=== PATIENT | male | born 1985 | race Caucasian/White ===

== ENCOUNTER 2025-04-22 09:07 | Emergency (ER) | payer MEDICARE, BC, SELFPAY ==
[2025-04-22 09:12] VITALS: BP 154/106
[2025-04-22 09:29] VITALS: BMI 39.6
[2025-04-22 09:36] VITALS: BP 138/89
--- NOTE | 2025-04-22 14:19 | ED.GENMED ---
History of Present Illness
General
Chief Complaint: Cancer Problem
Source: patient and spouse
Time Seen by Provider: 04/22/25 09:39
History of Present Illness
History of Present Illness:
Note:
CHIEF COMPLAINT(S)
Abdominal pain and constipation.
HISTORY OF PRESENT ILLNESS
The patient is a 40-year-old male with a history of lung cancer and nephrectomy following a kidney cancer diagnosis seven years ago, presenting with constipation, abdominal pain, and rectal pain. The symptoms reportedly worsened today, and he
describes experiencing a significant amount of pain and blood during bowel movements. The patient is on systemic chemotherapy and has taken a break from the medication this week. He attributes the constipation to pain medications. The pain is
located centrally in the abdomen and rectum, with accompanying sensations of bladder pressure. The patient indicates consistent supplemental oxygen use at home, typically needed due to his respiratory condition.
SOCIAL DETERMINANTS AFFECTING HEALTH
The patient is currently receiving care at the [facility] and has an upcoming appointment on Tuesday. He lives with cancer, and his current symptoms are affected by his chemotherapy and medication regimen.
MEDICATIONS
The patient is on a systemic chemotherapy regimen. Mentioned considering Miralax (polyethylene glycol 3350) for bowel management.
REVIEW OF SYSTEMS
- Gastrointestinal: Constipation, abdominal pain, rectal pain, recent rectal bleeding during bowel movements.
- Genitourinary: Sensation of bladder pressure.
PHYSICAL EXAM
- General: Awake, alert, and oriented. no resp distress
- Neurological: No focal motor deficits; cranial nerves grossly intact.
- Abdominal: Mild diffuse tenderness without significant peritoneal signs.
- Extremities: Warm and well-perfused.
PLAN
Obtain an abdominal X-ray to assess the extent of fecal retention and determine if an enema is required. Consider initiating daily use of a stool softener or Miralax for bowel management and discuss hydration strategies. Monitor the patients
symptoms and reassess following imaging to adjust the regimen accordingly.
DIFFERENTIAL DIAGNOSIS
The Differential Diagnosis includes, in no particular order and is not limited to:
- Constipation due to opioid use
- Bowel obstruction
- Gastrointestinal bleeding
- Hemorrhoids
- Diverticulitis
- Rectal fissure
- Anal abscess
- Colorectal cancer
- UTI (urinary tract infection)
- Recurrent malignancy-related complications
Disposition:
SUMMARY OF ENCOUNTER
The patient was seen in the emergency department for worsening constipation, abdominal pain, and rectal pain, exacerbated by opioid use associated with his pain management for cancer. An enema was administered, resulting in a significant bowel
movement and alleviation of symptoms.
REASSESSMENT
Patient reassessed after enema administration and reported significant symptom improvement, with the abdomen being soft and non-tender.
PLAN
Recommend the use of Miralax (polyethylene glycol 3350) twice daily for the next four to five days. After this period, the patient plans to use Miralax daily while on pain medications, adjusting the dose to prevent dehydration should stools become
loose.
FOLLOW-UP INSTRUCTIONS
Follow up with oncologist and palliative care as planned.
MEDICATION RECONCILIATION
Recommended the use of Miralax twice daily for constipation management due to opioid use.
MEDICAL DECISION MAKING
1. Number & Complexity of Problems: Chronic conditions affecting care include lung cancer and history of kidney cancer with nephrectomy. Symptoms include constipation and abdominal pain exacerbated by opioid use.
3. Risk: Consideration of admission was made due to risk of bowel obstruction; however, outpatient management is deemed appropriate following symptom improvement and a plan for bowel regimen adjustment.
PATHOLOGIES TO CONSIDER
Bowel obstruction or perforation, gastrointestinal bleeding, hemorrhoids, diverticulitis, rectal fissure, recurrent malignancy-related complications.
Diagnosis
Constipation
Phy Exam
Physical Exam
Physical Exam:
.
Course
Orders/Labs/Results
Orders:
Orders
04/22/25 10:38
Abdomen Xray - 1 View [CR Abdomen - 1 View] Urgent
Comment:
Reason For Exam: abd pain, constipation
04/22/25 11:28
Enema- Treatment ONCE
Type: Milk of Molasses
04/22/25 14:14
Oxycodone [Roxicodone] 15 mg PO NOW STA
Vital Signs
Initial and Last Documented VS:
Initial Vital Signs
Temp Pulse Resp BP Pulse Ox
98.1 F 102 18 154/106 92
04/22/25 09:12 04/22/25 09:12 04/22/25 09:12 04/22/25 09:12 04/22/25 09:12
Last Documented Vital Signs
Temp Pulse Resp BP Pulse Ox
98.1 F 82 18 126/78 92
04/22/25 09:12 04/22/25 15:02 04/22/25 15:02 04/22/25 15:02 04/22/25 15:02
*Pulse Oximetry
SaO2: 92
Nasal Cannula flow liters per minute: 2
Patient hypoxic: yes (Patient with a history of oxygen use because of mets to the lung)
*Critical Care Note
Total Time (30-74mins, 75-104mins- exclusive of procedures): Not Applicable
ED Attending Note
-
Portions of this chart may have been created with voice recognition software.� Occasional wrong word or��sound alike� substitutions may have occurred due to the inherent limitations of voice recognition software.
Discharge Plan
Departure
Patient Disposition: Home (Routine Discharge)
Date of Disposition: 04/22/25
Time of Disposition: 14:19
Patient with high blood pressure during this ER visit?: No
Discharge Problem:
Constipation
Instructions: Constipation, Adult (DC)
Referrals:
NONE,* [Family Provider, Internal Medicine]
Activity Restrictions/Additional Instructions:
Please use MiraLAX twice a day for the next 4 to 5 days as discussed. Scaled back if stools become watery or loose. In addition I think it is important that you continue MiraLAX daily while on narcotic pain medicine. Return immediately for
intractable vomiting, fevers, worsening pain or any other concerns.
Interventions
Interventions:
*Risk Screen - Suicide Last Done: 04/22/25 09:29
*General Assessment Last Done: 04/22/25 09:29
*Neglect/Abuse Screening Last Done: 04/22/25 09:29
*Nursing Disposition Last Done: 04/22/25 15:07
OQ-Ejksdv-Oyhehuhcwx Assessment Last Done: 04/22/25 09:29
Discharge Date and Time
Discharge Date/Time: 04/22/25 15:07
Print Language: LITHUANIAN
[2025-04-22] MEDS: ROXICODONE 15 MG PO (14:41)
[2025-04-22 15:02] VITALS: BP 126/78
== END 2025-04-22 15:07 | disposition home or self-care (01) ==
LOC: EMR 09:07
PROVIDERS: EMERGENCY PHYSICIAN Emergency Medicine
DX: K59.00 Constipation, unspecified (principal); K62.89 Other specified diseases of anus and rectum; C34.90 Malignant neoplasm of unspecified part of unspecified bronchus or lung; Z79.60 Long term (current) use of unspecified immunomodulators and immunosuppressants; Z85.528 Personal history of other malignant neoplasm of kidney; Z90.5 Acquired absence of kidney
CPT/HCPCS: 99283; 74018